=== PATIENT | male | born 1995 | race Caucasian/White ===

== ENCOUNTER 2024-10-03 16:29 | Emergency (ER) | payer OTHER ==
[~2024-10-03] VITALS: Ht 167.6 cm; Wt 85.7 kg
[2024-10-03] MEDS: LIDOCAINE 1% MDV 20 ML VIAL SC ONE (21:10)
[2024-10-03] MEDS: IBUPROFEN 600 MG TAB PO ONE (21:15)
[2024-10-03 22:00] VITALS: BP 136/82; TEMP 98.2; O2SAT 98
== END 2024-10-03 22:22 | disposition home or self-care (01) ==
LOC: M ED 16:29
DX: S91.114A Laceration without foreign body of right lesser toe(s) without damage to nail, initial encounter (principal); Y92.019 Unspecified place in single-family (private) house as the place of occurrence of the external cause; Y93.9 Activity, unspecified; Y99.9 Unspecified external cause status; W23.1XXA Caught, crushed, jammed, or pinched between stationary objects, initial encounter